=== PATIENT | female | born 1945 | race Hispanic/Latino ===

== ENCOUNTER → 2018-07-11 | Outpatient (REF) | payer MEDICARE ==
[~2018-07-11] VITALS: Ht 152.4 cm; Wt 60.8 kg
[~2018-07-11] MED LIST: ALENDRONATE SOD70 MG PO; AMLODIPINE5 MG PO; AMOXICILLIN500 MG PO; ATORVASTATIN CA40 MG PO; FOSAMAX PLUS; LEVOTHYROXIN50 MCG PO; MELOXICAM15 MG PO; OMEPRAZOLE20 M1 PO; OYSTER CALCIUM/1 TAB PO; SG ASA LOW81 M1 PO; VYTORIN 10/401 TAB PO
[2018-07-11 14:10] VITALS: BP 139/53
== END | disposition home or self-care (01) ==
LOC: ORM 08:45 → PO 08:51
PROVIDERS: ATTEND Internal Medicine Gastroenterology
DX: Z01.818 Encounter for other preprocedural examination (principal); Z12.11 Encounter for screening for malignant neoplasm of colon; K21.9 Gastro-esophageal reflux disease without esophagitis; I10 Essential (primary) hypertension; E03.9 Hypothyroidism, unspecified; E78.00 Pure hypercholesterolemia, unspecified; Z95.2 Presence of prosthetic heart valve; Z98.890 Other specified postprocedural states

== ENCOUNTER 2018-07-15 11:06 | Day surgery (SDC) | payer MEDICARE ==
[~2018-07-15 11:06] MED LIST changes: -AMOXICILLIN500 MG PO
[2018-07-15] MEDS ORDERED: AMOXICILLIN500 MG PO (11:18)
[2018-07-15 13:30] VITALS: BP 130/58
== END 2018-07-15 13:50 | disposition home or self-care (01) ==
LOC: ENDO 11:06 → ORM 13:45 → ENDO 13:50 → ORM 16:00
PROVIDERS: ATTEND Internal Medicine Gastroenterology
PROC: 0DB48ZX Excision of Esophagogastric Junction, Via Natural or Artificial Opening Endoscopic, Diagnostic (ICD-10-PCS; principal; 2018-07-15)
PROC: 0DB78ZX Excision of Stomach, Pylorus, Via Natural or Artificial Opening Endoscopic, Diagnostic (ICD-10-PCS; 2018-07-15)
PROC: 0DBN8ZX Excision of Sigmoid Colon, Via Natural or Artificial Opening Endoscopic, Diagnostic (ICD-10-PCS; 2018-07-15)
DX: K21.0 Gastro-esophageal reflux disease with esophagitis (principal); K29.00 Acute gastritis without bleeding; K44.9 Diaphragmatic hernia without obstruction or gangrene; Z12.11 Encounter for screening for malignant neoplasm of colon; K63.5 Polyp of colon; K57.30 Diverticulosis of large intestine without perforation or abscess without bleeding; K64.4 Residual hemorrhoidal skin tags; I10 Essential (primary) hypertension; J45.909 Unspecified asthma, uncomplicated; Z95.2 Presence of prosthetic heart valve

== ENCOUNTER 2022-09-18 09:31 | Emergency (ER) | payer MEDICARE ==
[~2022-09-18] VITALS: Ht 152.4 cm; Wt 63.0 kg
[~2022-09-18 09:31] MED LIST changes: +AMOXICILLIN500 MG PO
[2022-09-18 09:44] VITALS: BP 174/73
[2022-09-18] MEDS ORDERED: BACTRIM DS1 TAB PO (09:56)
[2022-09-18 10:00] VITALS: BP 154/64
[2022-09-18 10:15] VITALS: BP 153/65
[2022-09-18 10:30] VITALS: BP 131/61
[2022-09-18 10:46] VITALS: BP 110/50
== END 2022-09-18 10:55 | disposition home or self-care (01) ==
LOC: ED 09:31
PROC: 0H96XZZ Drainage of Back Skin, External Approach (ICD-10-PCS; principal; 2022-09-18)
DX: L72.9 Follicular cyst of the skin and subcutaneous tissue, unspecified (principal); I10 Essential (primary) hypertension

== ENCOUNTER 2022-09-20 06:50 | Emergency (ER) | payer MEDICARE ==
[~2022-09-20] VITALS: Ht 152.4 cm; Wt 62.0 kg
[~2022-09-20 06:50] MED LIST changes: +BACTRIM DS1 TAB PO
[2022-09-20 07:28] VITALS: BP 155/57
[2022-09-20 07:30] VITALS: BP 144/58
[2022-09-20 08:03] VITALS: BP 144/58
== END 2022-09-20 08:09 | disposition home or self-care (01) ==
LOC: ED 06:50
DX: Z48.01 Encounter for change or removal of surgical wound dressing (principal); I10 Essential (primary) hypertension

== ENCOUNTER 2023-06-13 10:30 | Emergency (ER) | payer MEDICARE ==
[2023-06-13] VITALS (10 sets, daily range): BP systolic 124–164; BP diastolic 54–69
[~2023-06-13] VITALS: Ht 152.4 cm; Wt 62.0 kg
[2023-06-13] MEDS ORDERED: EZALLOR SPRINKL40 MG (10:44)
[2023-06-13 11:37] LABS: BASO% 0.3 % (0-3); EOS% 1.3 % (0-8); HEMATOCRIT 38.9 % (37.0-47.0); HEMOGLOBIN 12.4 g/dl (12.0-16.0); IMMATURE GRANULOCYTES 0.3 % (0.0-5.0); LYMPH% 20.7 % (15-41); MEAN CELL VOLUME 92.8 fL CALC (80.0-100.0); MEAN CORPUSCULAR HGB 29.6 pG CALC (26.0-32.0); MEAN CORPUSCULAR HGB CONC 31.9 g/dL CAL (32.0-36.0); MONO% 5.5 % (2-13); NEUT# 8.57 thou/uL (2.00-7.15); NEUT% 71.9 % (42-76); RED BLOOD COUNT 4.19 mill/uL (4.20-5.60); RED CELL DISTRI WIDTH 14.2 % (11.5-15.5)
[2023-06-13 11:44] LABS: URINE BILIRUBIN - DIPSTICK Negative (NEGATIVE); URINE BLOOD DIPSTICK Trace-intact (NEGATIVE); URINE GLUCOSE - DIPSTICK Negative (NEGATIVE); URINE KETONE Negative (NEGATIVE); URINE LEUK ESTERASE Trace (NEGATIVE); URINE NITRITE - DIPSTICK Negative (Negative); URINE UROBILINOGEN - DIPSTICK 0.2 E.U./dL (0.2)
[2023-06-13 11:47] LABS: ALBUMIN 4.1 g/dL (3.2-5.0); ALKALINE PHOSPHATASE 75 u/l (38-126); ANION GAP 13 (6-22 (CALC)); BILIRUBIN, TOTAL 0.7 mg/dL (0.02-1.3); BUN 16 mg/dL (8-23); BUN/CREATININE RATIO 29 (12-20 (CALC)); CHLORIDE 107 mmol/l (95-108); CREATININE 0.5 mg/dL (0.5-1.0); GFR FOR AFR.AMER. > 60 ML/MIN (>=60 (CALC)); GFR OTHER RACES > 60 ML/MIN (>=60 (CALC)); LIPASE 79 u/l (23-300); POTASSIUM 3.7 mmol/l (3.5-5.1); SGOT/AST 35 u/l (9-36); SODIUM 138 mmol/l (137-146); TOTAL PROTEIN 6.8 g/dL (6.3-8.2)
[2023-06-13 11:47] LABS: URINE COLOR Yellow
[2023-06-13 11:48] LABS: URINE PROTEIN - DIPSTICK Trace mg/dL (NEG-TRACE)
[2023-06-13 11:57] LABS: CARBON DIOXIDE 22 mmol/l (22-30)
[2023-06-13] MEDS ORDERED: ZOFRAN4 MG/TAB PO (15:32)
== END 2023-06-13 15:48 | disposition home or self-care (01) ==
LOC: ED 10:30
PROVIDERS: Family Medicine
DX: R11.2 Nausea with vomiting, unspecified (principal); R10.84 Generalized abdominal pain; I10 Essential (primary) hypertension; R94.31 Abnormal electrocardiogram [ECG] [EKG]
CPT/HCPCS: Q9967